=== PATIENT | male | born 1970 | race Caucasian/White ===

== ENCOUNTER 2022-10-28 12:04 | Outpatient (REF) | payer MEDICAID, SELFPAY ==
[2022-10-28 14:54] LABS: Calculated LDL 108 mg/dL (<100); Cholesterol 205 mg/dL (<200); Glucose 117 mg/dL (74-106); HDL Cholesterol 49 mg/dL (40-60); Triglyceride 243 mg/dL (<150)
[2022-10-30 09:38] LABS: HIV-1/2 Ag & Ab Screen Negative (Negative)
[2022-11-01 12:17] LABS: Hepatitis C Ab w Rflx HCV PCR Negative (Negative)
== END 2022-10-28 12:05 | disposition home or self-care (01) ==
LOC: NCHCN 12:04
PROVIDERS: Visit Provider Nurse Practitioner Family
DX: Z13.1 Encounter for screening for diabetes mellitus (principal); Z13.220 Encounter for screening for lipoid disorders; Z11.3 Encounter for screening for infections with a predominantly sexual mode of transmission; Z11.59 Encounter for screening for other viral diseases
CPT/HCPCS: 80061; 82947; 86803; 87389

== ENCOUNTER 2022-12-28 12:34 | Outpatient (REF) | payer MEDICAID, SELFPAY ==
--- NOTE | 2022-12-28 11:30 | SKI_PTH ---
PATIENT: Magdi Ramon LOC: [facility]#:[id number] AGE/SX: 52/M ROOM: RE12/28/[address]: Hanh Ramirez : 1970 BED: DIS: 12/28/2022 SPEC #: [id number] RECD: 12/28/22 17:22 STATUS: AMAYA REMarci #: [id number] EMEKA: 12/28/22 11:[address]: Hanh Ramirez DEPT: Surgical Specimen RECD BY: Sandra Orta Tissues: 1 - SKIN BIOPSY(SHAVE/PUNCH) 2 - SKIN BIOPSY(SHAVE/PUNCH) Procedures: SKIN LEVEL 4 Comments: [id number]
== END 2022-12-28 12:35 | disposition home or self-care (01) ==
LOC: NCHCN 12:34
PROVIDERS: Visit Provider Nurse Practitioner Family
DX: L82.1 Other seborrheic keratosis (principal)
CPT/HCPCS: 88305